=== PATIENT | female | born 1980 | race Caucasian/White ===

== ENCOUNTER → 2024-04-20 17:32 | Outpatient (REF) | payer OTHER, SELFPAY | LOC: WDC 17:32 | PROVIDERS: ATTENDING PHYSICIAN Physician Assistant Medical | DX: Z12.31 Encounter for screening mammogram for malignant neoplasm of breast (principal) | CPT/HCPCS: 77063; 77067 ==

== ENCOUNTER → 2024-08-15 17:42 | Outpatient (REF) | payer OTHER, SELFPAY | LOC: MRI 3T 17:42 | PROVIDERS: ATTENDING PHYSICIAN Psychiatry & Neurology Neurology; FAMILY PHYSICIAN Physician Assistant Medical | DX: G43.809 Other migraine, not intractable, without status migrainosus (principal); H57.12 Ocular pain, left eye | CPT/HCPCS: 70543; 70553; A9575 ==

== ENCOUNTER → 2024-11-02 18:51 | Outpatient (REF) | payer OTHER, SELFPAY | LOC: MRI 3T 18:51 | PROVIDERS: ATTENDING PHYSICIAN Psychiatry & Neurology Neurology; FAMILY PHYSICIAN Physician Assistant Medical | DX: R90.82 White matter disease, unspecified (principal) | CPT/HCPCS: 72156; A9575 ==

== ENCOUNTER → 2024-12-08 17:35 | Outpatient (REF) | payer OTHER, SELFPAY | LOC: MRI 3T 17:35 | PROVIDERS: ATTENDING PHYSICIAN Psychiatry & Neurology Neurology; FAMILY PHYSICIAN Physician Assistant Medical | DX: R90.82 White matter disease, unspecified (principal) | CPT/HCPCS: 72157; A9575 ==

== ENCOUNTER → 2025-01-03 12:47 | Outpatient (REF) | payer OTHER, SELFPAY | LOC: RCS 12:47 | PROVIDERS: ATTENDING PHYSICIAN Internal Medicine Cardiovascular Disease; FAMILY PHYSICIAN Physician Assistant Medical | DX: R07.9 Chest pain, unspecified (principal); I10 Essential (primary) hypertension; R06.02 Shortness of breath | CPT/HCPCS: 93017; 93306 ==

== ENCOUNTER → 2025-01-24 12:43 | Outpatient (REF) | payer OTHER, SELFPAY | LOC: RAD 12:43 | PROVIDERS: ATTENDING PHYSICIAN Internal Medicine Gastroenterology; FAMILY PHYSICIAN Physician Assistant Medical | DX: R14.0 Abdominal distension (gaseous) (principal); R15.2 Fecal urgency | CPT/HCPCS: 74177; Q9967 ==

== ENCOUNTER → 2025-05-16 13:46 | Outpatient (REF) | payer OTHER, SELFPAY | LOC: RAD 13:46 | PROVIDERS: ATTENDING PHYSICIAN Physician Assistant Medical | DX: R14.0 Abdominal distension (gaseous) (principal) | CPT/HCPCS: 76700 ==